=== PATIENT | male | born 1955 | race Caucasian/White ===

== ENCOUNTER 2016-11-06 15:03 | Inpatient (IN) | payer OTHER ==
[~2016-11-06] VITALS: Ht 160 cm; Wt 67.3 kg
[~2016-11-06 15:03] MED LIST: ATORVASTATIN CA40 MG PO; BUSPAR10 MG PO; CIPRO500 MG PO; DULOXETINE HCL60 MG PO; FENTANYL1 EAC5 TD; FLEXERIL10 MG PO; FOLIC ACID1 MG PO; GABAPENTIN300 MG PO; GABAPENTIN600 MG PO; LIBRIUM25 MG PO; LIDODERM 5% P1 PATCH TD; LIPITOR40 MG PO; LISINOPRIL-HCT1 EACH PO; MELOXICAM7.5 MG PO; METHOCARBAMOL750 MG PO; METRONIDAZOLE500 MG PO; MORPHINE SULFAT15 M1 PO; MORPHINE SULFAT15 MG PO; NABUMETONE750 MG PO; NORTRIPTYLINE H25 MG PO; ONE DAILY ESS400 MCG PO; ONE DAILY MULT1 EACH PO; OXYCODONE HCL15 MG PO; OXYCODONE-APAP1 EACH PO; PERCOCET 10/1 TABLET PO; PERCOCET 5/31 TABLET PO; PREVACID30 MG PO; PRILOSEC40 MG PO; PRINZIDE 20-121 EACH PO; PROZAC40 MG PO; REMERON15 M2 PO; THIAMINE HCL100 MG PO; VITAMIN B-1100 MG PO; VITAMIN D35000 UNIT PO; ZOFRAN ODT4 MG PO
[2016-11-06] MEDS ORDERED: CYMBALTA60 MG PO (15:41)
[2016-11-06] MEDS ORDERED: LISINOPRIL-HCT1 EACH PO (15:41)
[2016-11-06] MEDS ORDERED: PREVACID30 MG PO (15:42)
[2016-11-06 16:34] LABS: EOSINOPHIL (%) 0.6 % (0-5); EOSINOPHIL COUNT 0.1 K/uL (0-0.3); HEMATOCRIT 41.4 % (38.0-50.0); IMMATURE GRANULOCYTE (%) 0.4 % (0.0-0.7); IMMATURE GRANULOCYTE COUNT 0.7 K/uL; LYMPHOCYTE COUNT 1.8 K/uL (1.0-2.8); MCH 31.3 PG (29.0-34.0); MCHC 35.3 G/DL (30.0-36.0); MCV 88.7 FL (86-99); MEAN PLAT.VOLUME 9.8 uM^3 (9.0-12.4); MONOCYTE (%) 5.6 % (3-12); NEUTROPHIL (%) 83.5 % (45-76); NEUTROPHIL COUNT 15.3 K/uL (1.8-6.4); PLATELET COUNT 248 K/uL (156-360); RBC DIS.WIDTH-CV 13.1 % (11.8-14.6); RBC DIS.WIDTH-SD 41.8 % (39-53); RED BLOOD COUNT 4.67 M/uL (4.00-5.50); WHITE BLOOD COUNT 18.4 K/uL (4.1-10.2)
[2016-11-06 16:42] LABS: CHLORIDE 102 mEq/L (99-109); POTASSIUM 3.8 mEq/L (3.7-5.4); SODIUM 137 mEq/L (136-147)
[2016-11-06 16:43] LABS: INTER. NORMALIZED RATIO 1.1; PROTHROMBIN TIME 10.7 (9.2-11.2); PTT 28.2 (25-32)
[2016-11-06 16:44] LABS: GLUCOSE 95 mg/dL (70-99)
[2016-11-06 16:46] LABS: ANION GAP 12 MEQ/L (2-14)
[2016-11-06 16:48] LABS: ALKALINE PHOSPHATASE 74 IU/L (3-129); GFR ESTIMATE (CALCULATED) > 59 mL/min/
[2016-11-06 16:49] LABS: UREA NITROGEN (BUN) 17 mg/dL (9-23)
[2016-11-06 16:54] LABS: TROP-I INTERPRETATION NEGATIVE; TROPONIN-I < 0.01 ng/mL (0.0-0.30)
[2016-11-06] MEDS ORDERED: LISINOPRIL-HCT1 EAC3 PO (19:43)
[2016-11-06] MEDS ORDERED: VITAMIN D5000 UNI1 PO (19:44)
[2016-11-06] MEDS ORDERED: FOLIC ACID0.8 MG PO (19:44)
[2016-11-06] MEDS ORDERED: DAILY VITE1 EAC1 PO (19:44)
[2016-11-06] MEDS ORDERED: LIPITOR40 MG PO (19:44)
[2016-11-06 22:52] VITALS: BP 102/68
[2016-11-06 23:33] LABS: TROP-I INTERPRETATION NEGATIVE; TROPONIN-I < 0.01 ng/mL (0.0-0.30)
[2016-11-07 04:02] VITALS: BP 110/64
[2016-11-07 06:02] LABS: ALKALINE PHOSPHATASE 59 IU/L (3-129); ANION GAP 8 MEQ/L (2-14); CHLORIDE 107 MEQ/L (99-109); DIRECT BILIRUBIN 0.1 mg/dL (0.0-0.3); GFR ESTIMATE (CALCULATED) > 59 mL/min/; GLUCOSE 77 mg/dL (70-99); POTASSIUM 3.5 MEQ/L (3.7-5.4); SAMPLE HEMOLYSIS CHECK 0; SAMPLE ICTERIC CHECK 0; SAMPLE LIPEMIA CHECK 0; SODIUM 138 MEQ/L (136-147); TOTAL BILIRUBIN 0.7 MG/DL (0.0-1.0); UREA NITROGEN (BUN) 14 mg/dL (9-23)
[2016-11-07 06:10] LABS: BASOPHIL COUNT 0.1 K/uL (0-0.1); EOSINOPHIL (%) 2.7 % (0-5); EOSINOPHIL COUNT 0.2 K/uL (0-0.3); HEMATOCRIT 38.5 % (38.0-50.0); IMMATURE GRANULOCYTE (%) 0.4 % (0.0-0.7); LYMPHOCYTE COUNT 2.8 K/uL (1.0-2.8); MCH 30.7 PG (29.0-34.0); MCHC 34.3 G/DL (30.0-36.0); MCV 89.5 FL (86-99); MEAN PLAT.VOLUME 10.7 uM^3 (9.0-12.4); MONOCYTE (%) 10.4 % (3-12); MONOCYTE COUNT 0.7 K/uL (0-0.8); NEUTROPHIL (%) 45.2 % (45-76); NEUTROPHIL COUNT 3.2 K/uL (1.8-6.4); PLATELET COUNT 223 K/uL (156-360); RBC DIS.WIDTH-CV 13.4 % (11.8-14.6); RBC DIS.WIDTH-SD 43.7 % (39-53)
[2016-11-07 06:14] LABS: TROP-I INTERPRETATION NEGATIVE; TROPONIN-I < 0.01 ng/mL (0.0-0.30)
[2016-11-07 07:34] VITALS: BP 110/63
[2016-11-07 12:07] VITALS: BP 129/78
[2016-11-07 15:36] VITALS: BP 118/64
[2016-11-07 19:39] VITALS: BP 132/77
[2016-11-07 22:57] VITALS: BP 129/69
[2016-11-08 07:46] VITALS: BP 127/71
[2016-11-08 11:15] VITALS: BP 134/73
[2016-11-08 15:20] VITALS: BP 123/69
[2016-11-08 20:00] VITALS: BP 125/67
[2016-11-08 23:55] VITALS: BP 111/58
[2016-11-09 03:35] VITALS: BP 114/67
[2016-11-09 07:44] VITALS: BP 129/78
[2016-11-09 08:37] LABS: HEMATOCRIT 38.7 % (38.0-50.0); MCH 30.1 PG (29.0-34.0); MCHC 33.3 G/DL (30.0-36.0); MCV 90.4 FL (86-99); MEAN PLAT.VOLUME 10.4 uM^3 (9.0-12.4); PLATELET COUNT 206 K/uL (156-360); RBC DIS.WIDTH-CV 13.4 % (11.8-14.6); RBC DIS.WIDTH-SD 44.6 % (39-53); RED BLOOD COUNT 4.28 M/uL (4.00-5.50)
[2016-11-09 09:07] LABS: ANION GAP 5 MEQ/L (2-14); CHLORIDE 109 MEQ/L (99-109); GFR ESTIMATE (CALCULATED) > 59 mL/min/; GLUCOSE 90 mg/dL (70-99); SAMPLE HEMOLYSIS CHECK 0; SAMPLE ICTERIC CHECK 0; SAMPLE LIPEMIA CHECK 0; SODIUM 142 MEQ/L (136-147); UREA NITROGEN (BUN) 10 mg/dL (9-23)
[2016-11-09 09:08] LABS: POTASSIUM 4.7 MEQ/L (3.7-5.4)
[2016-11-09] MEDS ORDERED: METRONIDAZOLE500 MG PO (09:34)
[2016-11-09] MEDS ORDERED: CIPROFLOXACIN500 M1 PO (09:34)
== END 2016-11-09 11:41 | disposition home health service (06) | DRG 392 ==
LOC: EME → EDBD 15:03 → EME 15:03 → EDOF 20:13 → 5SOUTH 20:13
PROVIDERS: Emergency Medicine; Nurse Practitioner Adult Health; Physician Assistant
DX: K57.32 Diverticulitis of large intestine without perforation or abscess without bleeding (principal); J98.11 Atelectasis; R00.1 Bradycardia, unspecified; I95.9 Hypotension, unspecified; I10 Essential (primary) hypertension; K21.9 Gastro-esophageal reflux disease without esophagitis; E87.6 Hypokalemia; E78.5 Hyperlipidemia, unspecified; F10.21 Alcohol dependence, in remission; F17.210 Nicotine dependence, cigarettes, uncomplicated; Z91.128 Patient's intentional underdosing of medication regimen for other reason; E86.0 Dehydration; Z86.72 Personal history of thrombophlebitis
CPT/HCPCS: 71010; 71275; 74177; 80048; 80053; 80076; 81003; 83605; 84484; 85025; 85027; 85610; 85730; 86850; 86900; 86901; 87040; 93005; 99281; 99285; J0461; J0744; J1650; J7030; S0030

== ENCOUNTER 2016-11-21 12:57 | Emergency (ER) | payer OTHER ==
[~2016-11-21] VITALS: Ht 160 cm; Wt 67.0 kg
[~2016-11-21 12:57] MED LIST changes: +CIPROFLOXACIN500 M1 PO; +CYMBALTA60 MG PO; +DAILY VITE1 EAC1 PO; +FOLIC ACID0.8 MG PO; +LISINOPRIL-HCT1 EAC3 PO; +VITAMIN D5000 UNI1 PO
[2016-11-21 15:29] LABS: HEMATOCRIT 40.3 % (38.0-50.0); MCH 30.9 PG (29.0-34.0); MCHC 33.7 G/DL (30.0-36.0); MCV 91.6 FL (86-99); MEAN PLAT.VOLUME 10.2 uM^3 (9.0-12.4); PLATELET COUNT 253 K/uL (156-360); RBC DIS.WIDTH-SD 45.6 % (39-53)
[2016-11-21 15:40] LABS: CHLORIDE 108 mEq/L (99-109); SODIUM 144 mEq/L (136-147)
[2016-11-21 15:42] LABS: GLUCOSE 63 mg/dL (70-99)
[2016-11-21 15:43] LABS: ANION GAP 7 MEQ/L (2-14)
[2016-11-21 15:46] LABS: GFR ESTIMATE (CALCULATED) 51 mL/min/
[2016-11-21 15:47] LABS: UREA NITROGEN (BUN) 14 mg/dL (9-23)
[2016-11-21 15:59] LABS: ADD MIUA? YES; BILIRUBIN NEGATIVE; BLOOD NEGATIVE; COLOR YELLOW ((YELLOW)); GLUCOSE (STRIP) NEGATIVE; KETONES NEGATIVE; LEUKOCYTES TRACE; NITRITE NEGATIVE; PROTEIN (STRIP) 30; SPECIFIC GRAVITY 1.014 (1.000-1.030); UROBILINOGEN 0.2 MG/DL (0.2-1.0)
[2016-11-21 16:16] LABS: TOTAL BILIRUBIN 0.4 mg/dL (0.0-1.0)
[2016-11-21 16:17] LABS: ALKALINE PHOSPHATASE 78 IU/L (3-129)
[2016-11-21 16:19] LABS: DIRECT BILIRUBIN 0.1 mg/dL (0.0-0.3)
[2016-11-21 16:19] LABS: BACTERIA NONE SEEN /HPF; EPITHELIAL CELLS RARE /HPF; MUCUS TRACE /LPF; RED BLOOD CELLS 0-5 /HPF (0-5); UCUL ADDED? NO
[2016-11-21 16:20] LABS: LIPASE 4 U/L (1.0-51.0)
[2016-11-21] MEDS ORDERED: BENTYL20 MG PO (17:37)
[2016-11-21] MEDS ORDERED: ZOFRAN ODT4 MG PO (17:37)
[2016-11-21 17:56] VITALS: BP 121/76
== END 2016-11-21 17:57 | disposition home or self-care (01) ==
LOC: EME 12:57
DX: R10.84 Generalized abdominal pain (principal); I73.9 Peripheral vascular disease, unspecified; E11.9 Type 2 diabetes mellitus without complications; E78.5 Hyperlipidemia, unspecified; I10 Essential (primary) hypertension
CPT/HCPCS: 74177; 80048; 80076; 81003; 83690; 85027; 99281; 99284; J2270; J2405; J7030

== ENCOUNTER 2017-01-01 21:06 | Emergency (ER) | payer OTHER ==
[~2017-01-01] VITALS: Ht 160 cm; Wt 70.5 kg
[~2017-01-01 21:06] MED LIST changes: +BENTYL20 MG PO
[2017-01-01 22:19] LABS: ADD MIUA? YES; BILIRUBIN NEGATIVE; BLOOD NEGATIVE; COLOR YELLOW ((YELLOW)); GLUCOSE (STRIP) NEGATIVE; KETONES NEGATIVE; LEUKOCYTES TRACE; NITRITE NEGATIVE; PROTEIN (STRIP) NEGATIVE; SPECIFIC GRAVITY 1.024 (1.000-1.030); UROBILINOGEN 0.2 MG/DL (0.2-1.0)
[2017-01-01 22:28] LABS: BACTERIA NONE SEEN /HPF; EPITHELIAL CELLS NONE SEEN /HPF; MUCUS 1+ /LPF; RED BLOOD CELLS 0-5 /HPF (0-5); UCUL ADDED? NO; WHITE BLOOD CELLS 0-5 /HPF (0-5)
[2017-01-01] MEDS ORDERED: MEDROL DOSEPAK4 MG PO (23:03)
[2017-01-01] MEDS ORDERED: PERCOCET 5/31 TABLET PO (23:03)
[2017-01-01] MEDS ORDERED: VALIUM5 MG PO (23:03)
[2017-01-01 23:31] VITALS: BP 156/85
== END 2017-01-01 23:34 | disposition home or self-care (01) ==
LOC: EME 21:06
PROVIDERS: Physician Assistant
DX: M51.36 Other intervertebral disc degeneration, lumbar region (principal); M54.16 Radiculopathy, lumbar region; M16.0 Bilateral primary osteoarthritis of hip; E11.9 Type 2 diabetes mellitus without complications; E78.5 Hyperlipidemia, unspecified; I10 Essential (primary) hypertension; F17.200 Nicotine dependence, unspecified, uncomplicated
CPT/HCPCS: 72100; 72170; 81003; 99281; 99284; J7512

== ENCOUNTER 2017-01-05 16:25 | Emergency (ER) | payer OTHER ==
[~2017-01-05] VITALS: Ht 160 cm; Wt 67.7 kg
[~2017-01-05 16:25] MED LIST changes: +MEDROL DOSEPAK4 MG PO; +VALIUM5 MG PO
[2017-01-05] MEDS ORDERED: PERCOCET 5/31 TABLET PO (20:37)
[2017-01-05] MEDS ORDERED: FOLIC ACID1 MG PO (20:43)
[2017-01-05] MEDS ORDERED: TEMAZEPAM15 MG PO (20:45)
[2017-01-05 21:18] VITALS: BP 141/80
== END 2017-01-05 21:20 | disposition home or self-care (01) ==
LOC: EME 16:25
DX: M54.16 Radiculopathy, lumbar region (principal); M79.605 Pain in left leg; E78.5 Hyperlipidemia, unspecified; F17.200 Nicotine dependence, unspecified, uncomplicated
CPT/HCPCS: 99281; 99284

== ENCOUNTER 2017-01-23 09:46 | Emergency (ER) | payer OTHER ==
[~2017-01-23] VITALS: Ht 160 cm; Wt 68.0 kg
[~2017-01-23 09:46] MED LIST changes: +TEMAZEPAM15 MG PO
[2017-01-23 10:59] LABS: HEMATOCRIT 40.8 % (38.0-50.0); MCH 30.6 PG (29.0-34.0); MCHC 34.3 G/DL (30.0-36.0); MCV 89.3 FL (86-99); MEAN PLAT.VOLUME 10.1 uM^3 (9.0-12.4); PLATELET COUNT 239 K/uL (156-360); RBC DIS.WIDTH-CV 12.8 % (11.8-14.6); RED BLOOD COUNT 4.57 M/uL (4.00-5.50); WHITE BLOOD COUNT 10.4 K/uL (4.1-10.2)
[2017-01-23 11:09] LABS: CHLORIDE 107 mEq/L (99-109); POTASSIUM 3.8 mEq/L (3.7-5.4); SODIUM 140 mEq/L (136-147)
[2017-01-23 11:11] LABS: GLUCOSE 145 mg/dL (70-99)
[2017-01-23 11:12] LABS: ANION GAP 11 MEQ/L (2-14)
[2017-01-23 11:13] LABS: TOTAL BILIRUBIN 0.3 mg/dL (0.0-1.0)
[2017-01-23 11:14] LABS: ALKALINE PHOSPHATASE 82 IU/L (3-129); SERUM ETHYL ALCOHOL < 10 mg/dL
[2017-01-23 11:15] LABS: GFR ESTIMATE (CALCULATED) > 59 mL/min/
[2017-01-23 11:16] LABS: UREA NITROGEN (BUN) 13 mg/dL (9-23)
[2017-01-23 11:18] LABS: LIPASE 15 U/L (1.0-51.0)
[2017-01-23 11:20] LABS: TROP-I INTERPRETATION NEGATIVE; TROPONIN-I < 0.01 ng/mL (0.0-0.30)
[2017-01-23 12:01] VITALS: BP 142/81
[2017-01-23] MEDS ORDERED: PERCOCET 5/31 TABLET PO (12:14)
== END 2017-01-23 13:35 | disposition home or self-care (01) ==
LOC: EME 09:46
PROVIDERS: Emergency Medicine
DX: R07.89 Other chest pain (principal); M54.32 Sciatica, left side; M79.601 Pain in right arm; R10.32 Left lower quadrant pain; E78.5 Hyperlipidemia, unspecified; F17.200 Nicotine dependence, unspecified, uncomplicated
CPT/HCPCS: 71020; 80048; 80053; 83690; 84484; 85027; 93005; 99281; 99284; G0480; J1885

== ENCOUNTER 2017-05-18 07:09 | Day surgery (SDC) | payer OTHER ==
[~2017-05-18] VITALS: Ht 160.7 cm; Wt 59.9 kg
[~2017-05-18 07:09] MED LIST changes: +ASPIRIN81 M2 PO; +DILAUDID4 MG PO; +ZANAFLEX4 M1 PO
== END 2017-05-18 09:10 | disposition home or self-care (01) ==
LOC: PAIN 07:09 → SDC 08:00 → PAIN 09:10
DX: M47.26 Other spondylosis with radiculopathy, lumbar region (principal); M16.12 Unilateral primary osteoarthritis, left hip; I10 Essential (primary) hypertension; K21.9 Gastro-esophageal reflux disease without esophagitis; F17.210 Nicotine dependence, cigarettes, uncomplicated
CPT/HCPCS: J1030; J2250; J3010; S0020

== ENCOUNTER 2017-05-25 08:15 | Day surgery (SDC) | payer OTHER ==
[~2017-05-25] VITALS: Ht 160.7 cm; Wt 59.9 kg
== END 2017-05-25 10:16 | disposition home or self-care (01) ==
LOC: PAIN 08:15 → SDC 09:00 → PAIN 10:16
DX: M47.26 Other spondylosis with radiculopathy, lumbar region (principal); M54.5 Low back pain; E78.00 Pure hypercholesterolemia, unspecified; M16.12 Unilateral primary osteoarthritis, left hip; I10 Essential (primary) hypertension; F31.9 Bipolar disorder, unspecified; K21.9 Gastro-esophageal reflux disease without esophagitis; F17.200 Nicotine dependence, unspecified, uncomplicated; M19.011 Primary osteoarthritis, right shoulder; E66.3 Overweight; Z68.23 Body mass index [BMI] 23.0-23.9, adult; Z79.891 Long term (current) use of opiate analgesic
CPT/HCPCS: J1030; J2250; J3010; S0020

== ENCOUNTER 2017-08-29 12:51 | Day surgery (SDC) | payer OTHER ==
[~2017-08-29] VITALS: Ht 160.7 cm; Wt 58.1 kg
[~2017-08-29 12:51] MED LIST changes: +ASPIR 8181 M1 PO; -ASPIRIN81 M2 PO; +MS CONTIN,ORAMO15 M1 PO
== END 2017-08-29 14:30 | disposition home or self-care (01) ==
LOC: PAIN 12:51 → SDC 13:30 → PAIN 14:30
DX: M47.26 Other spondylosis with radiculopathy, lumbar region (principal); M54.5 Low back pain; G89.29 Other chronic pain; M19.011 Primary osteoarthritis, right shoulder; M16.12 Unilateral primary osteoarthritis, left hip; I10 Essential (primary) hypertension; K21.9 Gastro-esophageal reflux disease without esophagitis; E78.5 Hyperlipidemia, unspecified; F17.200 Nicotine dependence, unspecified, uncomplicated; Z79.82 Long term (current) use of aspirin
CPT/HCPCS: J1030; J2250; J3010; S0020

== ENCOUNTER 2017-09-05 12:27 | Day surgery (SDC) | payer OTHER ==
[~2017-09-05] VITALS: Ht 160.7 cm; Wt 58.1 kg
== END 2017-09-05 14:10 | disposition home or self-care (01) ==
LOC: PAIN 12:27 → SDC 13:15 → PAIN 13:15
DX: M47.26 Other spondylosis with radiculopathy, lumbar region (principal); M54.5 Low back pain; G89.29 Other chronic pain; M16.12 Unilateral primary osteoarthritis, left hip; M19.011 Primary osteoarthritis, right shoulder; I10 Essential (primary) hypertension; E78.00 Pure hypercholesterolemia, unspecified; F17.200 Nicotine dependence, unspecified, uncomplicated; K21.9 Gastro-esophageal reflux disease without esophagitis
CPT/HCPCS: J1030; J2250; J3010; S0020

== ENCOUNTER 2018-04-30 17:16 | Inpatient (IN) | payer OTHER ==
[~2018-04-30] VITALS: Ht 162.6 cm; Wt 55.6 kg
[2018-04-30 18:33] LABS: APPEARANCE CLEAR ((CLEAR)); BILIRUBIN NEGATIVE; BLOOD NEGATIVE; COLOR YELLOW ((YELLOW)); GLUCOSE (STRIP) NEGATIVE; KETONES 5; LEUKOCYTES NEGATIVE; NITRITE NEGATIVE; PROTEIN (STRIP) NEGATIVE; SPECIFIC GRAVITY 1.021 (1.000-1.030); UCUL ADDED? NO
[2018-04-30 18:34] LABS: HEMATOCRIT 36.9 % (38.0-50.0); HEMOGLOBIN 12.8 G/DL (12.5-16.6); MCH 30.8 PG (29.0-34.0); MCHC 34.7 G/DL (30.0-36.0); MCV 88.7 FL (86-99); PLATELET COUNT 214 K/uL (156-360); RBC DIS.WIDTH-CV 14.5 % (11.8-14.6); RBC DIS.WIDTH-SD 46.7 % (39-53); RED BLOOD COUNT 4.16 M/uL (4.00-5.50); WHITE BLOOD COUNT 14.1 K/uL (4.1-10.2)
[2018-04-30 18:44] LABS: CHLORIDE 104 mEq/L (99-109); POTASSIUM 3.6 mEq/L (3.7-5.4); SODIUM 135 mEq/L (136-147)
[2018-04-30 18:45] LABS: AMPHETAMINE NEGATIVE (500 ng/mL); BARBITURATES PRESUMPTIVE POSITIVE (200 ng/mL); BENZODIAZEPINES PRESUMPTIVE POSITIVE (150 ng/mL); COCAINE NEGATIVE (150 ng/mL); METHADONE NEGATIVE (200 ng/mL); METHAMPHETAMINE NEGATIVE (500 ng/mL); OPIATES (MORPHINE) NEGATIVE (100 ng/mL); OXYCODONE PRESUMPTIVE POSITIVE (100 ng/mL); PHENCYCLIDINE NEGATIVE (25 ng/mL); THC CANNABINOIDS PRESUMPTIVE POSITIVE (50 ng/mL); TRICYCLIC ANTIDEPRESSANTS NEGATIVE (300 ng/mL)
[2018-04-30 18:46] LABS: GLUCOSE 78 mg/dL (70-99); TOTAL PROTEIN 6.1 g/dL (6.4-8.3)
[2018-04-30 18:46] LABS: BUPRENORPHINE NEGATIVE (10 ng/mL); PROPOXYPHENE NEGATIVE (300 ng/mL)
[2018-04-30 18:48] LABS: TOTAL BILIRUBIN 0.3 mg/dL (0.0-1.0)
[2018-04-30 18:49] LABS: SERUM ETHYL ALCOHOL < 10 mg/dL
[2018-04-30 18:50] LABS: ALKALINE PHOSPHATASE 85 IU/L (3-129); GFR ESTIMATE (CALCULATED) > 59 mL/min/ (58.99-99999)
[2018-04-30 18:51] LABS: AST (GOT) 19 IU/L (2-34)
[2018-04-30 18:52] LABS: UREA NITROGEN (BUN) 14 mg/dL (9-23)
[2018-04-30 18:53] LABS: SALICYLATE < 5.0 MG/DL (15-30)
[2018-04-30 18:54] LABS: ACETAMINOPHEN (TYLENOL) < 10 mcg/mL (10-30); ALT (GPT) 9 IU/L (3-49)
[2018-04-30 19:22] LABS: BENZODIAZEPINES, URINE SCREEN Negative (200 ng/mL)
[2018-04-30] MEDS ORDERED: PROZAC20 MG PO (21:15)
[2018-04-30] MEDS ORDERED: ROXICODONE15 MG PO (21:15)
[2018-04-30] MEDS ORDERED: BUSPAR5 MG PO (21:15)
[2018-04-30 21:50] VITALS: BP 147/69
[2018-05-01 07:51] VITALS: BP 167/77
[2018-05-01 16:15] VITALS: BP 116/57
[2018-05-02 07:54] VITALS: BP 111/57
[2018-05-02] MEDS ORDERED: BUPRENORPHIN-N1 EACH SL (10:37)
== END 2018-05-02 12:55 | disposition home or self-care (01) | DRG 897 ==
LOC: EME 17:16 → 1WEST 19:13 → EDOF 19:13 → ENRESERV 21:11 → 1WEST 21:37
PROVIDERS: Physician Assistant
DX: F11.23 Opioid dependence with withdrawal (principal); F19.14 Other psychoactive substance abuse with psychoactive substance-induced mood disorder; F12.90 Cannabis use, unspecified, uncomplicated; F32.9 Major depressive disorder, single episode, unspecified; F41.9 Anxiety disorder, unspecified; M19.90 Unspecified osteoarthritis, unspecified site; I10 Essential (primary) hypertension; E78.00 Pure hypercholesterolemia, unspecified; E78.5 Hyperlipidemia, unspecified; E11.9 Type 2 diabetes mellitus without complications; K21.9 Gastro-esophageal reflux disease without esophagitis; F10.10 Alcohol abuse, uncomplicated; F17.200 Nicotine dependence, unspecified, uncomplicated; Z87.820 Personal history of traumatic brain injury; Z79.82 Long term (current) use of aspirin
CPT/HCPCS: 80053; 81003; 84999; 85027; 90839; 99281; 99285; G0480; J0572; J0574; Q0177